=== PATIENT | female | born 1965 | race Caucasian/White ===

== ENCOUNTER 2022-06-27 20:41 | Observation (INO) ==
[2022-06-27 22:39] LABS: Basophils # 0.1 K/mcL (0.0-0.2); Basophils % 0.4 %; Eosinophils # 0.1 K/mcL (0.0-0.6); Eosinophils % 0.6 %; Hematocrit 41.5 % (35.3-44.9); Hemoglobin 13.9 g/dL (11.5-15.4); Immature Granulocytes % 0.4 % (0-4); Lymphocytes # 1.7 K/mcL (0.6-4.6); Lymphocytes % 12.2 %; Mean Corpuscular HGB Conc 33.5 g/dL (31.6-35.5); Mean Corpuscular Volume 89.4 fL (83.0-100.0); Mean Platelet Volume 9.1 fL (9.4-12.4); Monocytes # 0.5 K/mcL (0.0-1.3); Monocytes % 3.6 %; Neutrophils # 11.6 K/mcL (1.6-8.9); Platelet Count 259 K/mcL (140-400); Red Blood Count 4.64 M/mcL (3.82-4.97); Red Cell Distribution Width 13.3 % (11.5-14.5); Segmented Neutrophils % 82.8 %
[2022-06-27 22:49] LABS: Bilirubin,Urine Negative (Negative); Blood,Urine Trace (Negative); Clarity,Urine Clear (Clear); Color,Urine Colorless (Yellow); Glucose,Urine (UA) Normal (Normal); Ketones,Urine 20 mg/dL (Negative); Leukocyte Esterase,Urine Negative (Negative); Nitrite,Urine Negative (Negative); Protein,Urine Negative (Neg-Trace); Specific Gravity,Urine 1.008 (1.010-1.025); Squamous Epithelial Cell,Urine Few per hpf (None-Few); Urobilinogen,Urine Normal (Normal); WBC,Urine 0-3 per hpf (0-3)
[2022-06-27 23:01] LABS: Alanine Aminotransferase 8 Units/L (7-52); Albumin 4.4 g/dL (3.5-5.7); Albumin/Globulin Ratio 1.4 (1.1-2.2); Alkaline Phosphatase 76 Units/L (34-104); Aspartate Amino Transferase 8 Units/L (13-39); BUN/Creatinine Ratio 11 (6-26); Bilirubin,Direct 0.1 mg/dL (0.0-0.2); Bilirubin,Indirect 0.4 mg/dL (0.0-1.0); Bilirubin,Total 0.5 mg/dL (0.3-1.0); Blood Urea Nitrogen 8 mg/dL (6-20); Calcium 9.6 mg/dL (8.6-10.3); Carbon Dioxide 24 mEq/L (23-29); Chloride 105 mEq/L (98-107); Globulin 3.2 g/dL (2.4-3.5); Glucose 109 mg/dL (70-105); Lipase 16 Units/L (11-82); Osmolality,Calculated 283 (280-300); Potassium 3.9 mEq/L (3.5-5.1); Sodium 137 mEq/L (136-145); Total Protein 7.6 g/dL (6.4-8.9)
[2022-06-28] MEDS ORDERED: Iopamidol - 370 500 ML MLS IVP ONE (01:07)
[2022-06-28 02:11] LABS: Troponin I < 0.03 ng/mL (< 0.04)
[2022-06-28] MEDS ORDERED: *HR* FentaNYL (PF) 100 MCG/2 ML VIAL IVP ONE (02:24)
[2022-06-28] MEDS ORDERED: Piperacillin/Tazobactam 3.375 GM in 0.9 % Sodium Chloride Mini Bag 100 ML IVPB ONE (02:24)
[2022-06-28] MEDS ORDERED: Ondansetron 4 MG/2 ML VIAL IVP ONE (02:24)
[2022-06-28] MEDS ORDERED: 0.9 % Sodium Chloride 1,000 ML IVC ONE (02:24)
[2022-06-28] MEDS ORDERED: 0.9 % Sodium Chloride 1,000 ML IVC SCH (04:12)
[2022-06-28] MEDS ORDERED: Ondansetron 4 MG/2 ML VIAL IVP PRN ×2 (04:12→11:19)
[2022-06-28] MEDS ORDERED: *HR* Metoprolol 5 MG/5 ML VIAL IVP PRN ×2 (04:12→11:19)
[2022-06-28] MEDS ORDERED: Ketorolac 30 MG/ML VIAL IM ONE (06:02)
[2022-06-28] MEDS ORDERED: Piperacillin/Tazobactam 3.375 GM in 0.9 % Sodium Chloride Mini Bag 100 ML IVPB SCH (08:00)
[2022-06-28] MEDS ORDERED: Bupivacaine 0.5%-Epi 1:200,000 50 ML VIAL ONE (08:36)
[2022-06-28] MEDS ORDERED: Ondansetron 4 MG/2 ML VIAL ONE (08:42)
[2022-06-28] MEDS ORDERED: Lidocaine -MPF 2% 5 ML VIAL ONE (08:42)
[2022-06-28] MEDS ORDERED: *HR* Rocuronium Bromide 50 MG/5 ML VIAL ONE (08:42)
[2022-06-28] MEDS ORDERED: *HR* FentaNYL (PF) 100 MCG/2 ML VIAL ONE ×2 (08:43→10:16)
[2022-06-28] MEDS ORDERED: *HR* Propofol 200 MG/20 ML VIAL IVP ONE (08:43)
[2022-06-28] MEDS ORDERED: Promethazine 6.25 MG in Water for inj. (sterile) 20 ML IVPB PRN ×2 (08:55→11:19)
[2022-06-28] MEDS ORDERED: *HR* HYDROmorphone PF 0.5 MG/0.5 ML SYRINGE IVP PRN ×2 (08:55→11:19)
[2022-06-28] MEDS ORDERED: Lidocaine HCL 4 ML Topical Solution (Laryng-O-Jet Kit Sterile Pak) TP ONE (09:11)
[2022-06-28] MEDS ORDERED: Sugammadex Sodium 200 MG/2 ML VIAL IV ONE (09:36)
[2022-06-28] MEDS ORDERED: Acetaminophen IV 1,000 MG/100 ML BAG IVPB ONE ×3 (09:53→11:19)
[2022-06-28] MEDS ORDERED: Ketorolac 30 MG/ML VIAL IVP PRN (11:19)
[2022-06-28] MEDS ORDERED: Ibuprofen 600 MG TABLET PO PRN (12:00)
[2022-06-28] MEDS: 0.9 % Sodium Chloride 1,000 ML IVC SCH ×3 (14:50→15:03)
[2022-06-28] MEDS: *HR* OxyCODONE/APAP 5/325 TABLET PO PRN (16:52)
[2022-06-28] MEDS: Piperacillin/Tazobactam 3.375 GM in 0.9 % Sodium Chloride Mini Bag 100 ML IVPB SCH (16:53)
[2022-06-28] MEDS: Ondansetron 4 MG/2 ML VIAL IVP PRN (20:29)
[2022-06-29] MEDS: Piperacillin/Tazobactam 3.375 GM in 0.9 % Sodium Chloride Mini Bag 100 ML IVPB SCH ×4 (00:47→23:03)
[2022-06-29] MEDS: *HR* OxyCODONE/APAP 5/325 TABLET PO PRN (00:50)
[2022-06-29] MEDS: 0.9 % Sodium Chloride 1,000 ML IVC SCH ×3 (02:14→08:31)
[2022-06-29 05:10] LABS: Basophils % 0.1 %; Hematocrit 31.5 % (35.3-44.9); Hemoglobin 10.3 g/dL (11.5-15.4); Immature Granulocytes % 0.5 % (0-4); Lymphocytes # 0.7 K/mcL (0.6-4.6); Lymphocytes % 7.1 %; Mean Corpuscular HGB Conc 32.7 g/dL (31.6-35.5); Mean Corpuscular Hemoglobin 29.9 pg (28.0-33.3); Mean Corpuscular Volume 91.3 fL (83.0-100.0); Mean Platelet Volume 9.8 fL (9.4-12.4); Monocytes # 0.4 K/mcL (0.0-1.3); Monocytes % 3.8 %; Neutrophils # 8.3 K/mcL (1.6-8.9); Platelet Count 198 K/mcL (140-400); Red Blood Count 3.45 M/mcL (3.82-4.97); Red Cell Distribution Width 13.5 % (11.5-14.5); Segmented Neutrophils % 88.5 %; White Blood Count 9.4 K/mcL (4.3-11.1)
[2022-06-29 05:23] LABS: Calcium 8.8 mg/dL (8.6-10.3); Potassium 4.7 mEq/L (3.5-5.1)
[2022-06-29] MEDS: Ibuprofen 400 MG TABLET PO SCH ×3 (12:17→22:54)
[2022-06-29] MEDS ORDERED: Metoprolol XL (24 HR) Succ 25 MG TAB.ER.24H PO SCH (18:00)
[2022-06-29 22:48] VITALS: TEMP 98.2
[2022-06-30] MEDS: Ondansetron 4 MG/2 ML VIAL IVP PRN (02:39)
[2022-06-30 07:01] VITALS: BP 100/63; PULSE 85; O2SAT 92
[2022-06-30] MEDS ORDERED: amLODIPine 5 MG TABLET PO SCH (09:00)
== END 2022-06-30 10:58 | disposition home or self-care (01) ==
LOC: EMEROOARM 20:41 → 3BNU 20:41
PROVIDERS: ADMIT Surgery; ATTEND Surgery